=== PATIENT | female | born 1990 | race African-American/Black ===

== ENCOUNTER 2017-01-06 14:42 | Emergency (ER) | payer OTHER ==
[~2017-01-06] VITALS: Ht 162.6 cm; Wt 50.0 kg
[~2017-01-06 14:42] MED LIST: DIPHENHYDRAM25 MG PO; FERR SULFATE325 MG; MACRODANTIN100 MG PO; MEDDOSEPAK PO; NO; ONDANSETRON4 MG PO; PRE-NATAL PO; PRENATAL1 TA1; SM IRON
[2017-01-06 15:08] VITALS: BP 98/57
[2017-01-06 15:26] LABS: HEMOGLOBIN 10.3 g/dl (12.0-16.0); IMMATURE GRANULOCYTES 0.5 % (0.0-1.0); MEAN CELL VOLUME 85.9 fL CALC (80.0-100.0); MEAN CORPUSCULAR HGB 28.5 pG CALC (26.0-32.0); MEAN CORPUSCULAR HGB CONC 33.2 g/L CALC (32.0-36.0); NEUT# 2.59 thou/uL (2.00-7.15); RED BLOOD COUNT 3.61 mill/uL (4.20-5.60); RED CELL DISTRI WIDTH 12.1 % (11.5-15.5)
[2017-01-06 15:36] LABS: ALBUMIN 3.6 g/dL (3.2-5.0); ALKALINE PHOSPHATASE 39 u/l (38-126); ANION GAP 11 (6-22 (CALC)); BILIRUBIN, TOTAL 0.4 mg/dL (0.0-1.4); BUN 9 mg/dL (7-17); BUN/CREATININE RATIO 18 (12-20 (CALC)); CALCIUM 9.2 mg/dL (8.4-10.2); CARBON DIOXIDE 24 mmol/l (22-30); CHLORIDE 105 mmol/l (95-108); CREATININE 0.5 mg/dL (0.5-1.0); GFR > 60 ML/MIN (>=60 (CALC)); GFR FOR AFR.AMER. > 60 ML/MIN (>=60 (CALC)); GLUCOSE 75 mg/dL (65-105); POTASSIUM 3.5 mmol/l (3.5-5.1); SGOT/AST 16 u/l (14-36); SGPT/ALT 18 u/l (9-52); SODIUM 137 mmol/l (137-146); TOTAL PROTEIN 6.6 g/dL (6.3-8.2)
[2017-01-06 16:40] LABS: URINE BILIRUBIN - DIPSTICK NEGATIVE (NEGATIVE); URINE BLOOD DIPSTICK NEGATIVE (NEGATIVE); URINE CLARITY CLOUDY; URINE COLOR YELLOW; URINE GLUCOSE - DIPSTICK NEGATIVE (NEGATIVE); URINE KETONE TRACE mg/dL (NEGATIVE); URINE NITRITE - DIPSTICK NEGATIVE (Negative); URINE PH 6.5 (4.5-8.0); URINE PROTEIN - DIPSTICK NEGATIVE (NEG-TRACE); URINE SPECIFIC GRAVITY 1.025; URINE UROBILINOGEN - DIPSTICK 0.2 E.U./dL (0.2)
[2017-01-06 16:45] LABS: URINE LEUK ESTERASE MODERATE (NEGATIVE)
[2017-01-06 16:46] LABS: URINE BACTERIA FEW hpf; URINE MUCUS MANY hpf (NONE-FEW); URINE RBC 0-2 RBC/hpf (0-5); URINE SQUAMOUS EPITHELIAL CELL MANY EPI/hpf (0-FEW)
[2017-01-06] MEDS ORDERED: MACROBID100 MG PO ×2 (16:58→17:49)
== END 2017-01-06 17:45 | disposition home or self-care (01) | DRG 781 ==
LOC: ED 14:42
PROVIDERS: Emergency Medicine
DX: O23.92 Unspecified genitourinary tract infection in pregnancy, second trimester (principal); R10.31 Right lower quadrant pain; Z3A.16 16 weeks gestation of pregnancy; R10.32 Left lower quadrant pain

== ENCOUNTER 2017-05-18 18:00 | Observation (INO) | payer OTHER ==
[~2017-05-18] VITALS: Ht 160 cm; Wt 55.8 kg
[2017-05-18 18:00] VITALS: BP 100/62
[~2017-05-18 18:00] MED LIST changes: +MACROBID100 MG PO
[2017-05-18 18:45] VITALS: BP 117/61
[2017-05-18 19:05] LABS: URINE BILIRUBIN - DIPSTICK NEGATIVE (NEGATIVE); URINE BLOOD DIPSTICK NEGATIVE (NEGATIVE); URINE COLOR YELLOW; URINE GLUCOSE - DIPSTICK NEGATIVE (NEGATIVE); URINE KETONE TRACE mg/dL (NEGATIVE); URINE NITRITE - DIPSTICK NEGATIVE (Negative); URINE PH 6.5 (4.5-8.0); URINE PROTEIN - DIPSTICK NEGATIVE (NEG-TRACE); URINE SPECIFIC GRAVITY 1.025; URINE UROBILINOGEN - DIPSTICK 0.2 E.U./dL (0.2)
[2017-05-18 19:08] LABS: URINE CLARITY CLEAR; URINE LEUK ESTERASE SMALL (NEGATIVE)
[2017-05-18 19:09] LABS: BARBITURATES NEGATIVE (NEGATIVE); COCAINE NEGATIVE (NEGATIVE); METHADONE NEGATIVE (NEGATIVE); OXCYCODONE NEGATIVE (NEGATIVE); TETRAHYDROCANNABIONOL NEGATIVE (NEGATIVE); TRICYLIC ANTIDEPRESSANTS NEGATIVE (NEGATIVE)
[2017-05-18 19:13] LABS: HEMATOCRIT 29.4 % (37.0-47.0); HEMOGLOBIN 9.6 g/dl (12.0-16.0); IMMATURE GRANULOCYTES 3.7 % (0.0-1.0); MEAN CELL VOLUME 87.5 fL CALC (80.0-100.0); MEAN CORPUSCULAR HGB 28.6 pG CALC (26.0-32.0); MEAN CORPUSCULAR HGB CONC 32.7 g/L CALC (32.0-36.0); NEUT# 5.25 thou/uL (2.00-7.15); RED BLOOD COUNT 3.36 mill/uL (4.20-5.60); RED CELL DISTRI WIDTH 13.7 % (11.5-15.5)
[2017-05-18] MEDS ORDERED: FERR SULFATE325 MG PO (19:13)
[2017-05-18 19:15] VITALS: BP 112/63
[2017-05-18 19:20] LABS: ALBUMIN 3.3 g/dL (3.2-5.0); ALKALINE PHOSPHATASE 121 u/l (38-126); ANION GAP 13 (6-22 (CALC)); BILIRUBIN, TOTAL 0.5 mg/dL (0.0-1.4); BUN 7 mg/dL (7-17); BUN/CREATININE RATIO 13 (12-20 (CALC)); CALCIUM 9.3 mg/dL (8.4-10.2); CARBON DIOXIDE 20 mmol/l (22-30); CHLORIDE 108 mmol/l (95-108); CREATININE 0.5 mg/dL (0.5-1.0); GFR > 60 ML/MIN (>=60 (CALC)); GFR FOR AFR.AMER. > 60 ML/MIN (>=60 (CALC)); GLUCOSE 108 mg/dL (65-105); SGOT/AST 22 u/l (14-36); SGPT/ALT 23 u/l (9-52); SODIUM 137 mmol/l (137-146); TOTAL PROTEIN 6.3 g/dL (6.3-8.2)
[2017-05-18 19:42] LABS: URINE CALCIUM OXALATE CRYSTALS FEW lpf; URINE SQUAMOUS EPITHELIAL CELL FEW EPI/hpf (0-FEW)
[2017-05-18 19:45] VITALS: BP 105/59
[2017-05-18 20:15] VITALS: BP 87/48
[2017-05-18 20:45] VITALS: BP 92/48
[2017-05-19 00:27] VITALS: BP 82/47
[2017-05-19 04:15] VITALS: BP 96/48
[2017-05-19 08:45] VITALS: BP 106/58
[2017-05-19 09:25] VITALS: BP 108/59
== END 2017-05-19 10:00 | disposition home or self-care (01) | DRG 780 ==
LOC: OBOP 18:00 → OB 18:00 → OBOP 18:29 → OB 18:30
PROVIDERS: ADMIT Obstetrics & Gynecology; ATTEND Obstetrics & Gynecology
DX: O47.03 False labor before 37 completed weeks of gestation, third trimester (principal); Z3A.35 35 weeks gestation of pregnancy
CPT/HCPCS: G0378

== ENCOUNTER 2017-06-12 05:00 | Inpatient (IN) | payer OTHER ==
[2017-06-12] VITALS (12 sets, daily range): BP systolic 100–123; BP diastolic 42–78
[~2017-06-12] VITALS: Ht 162.6 cm; Wt 58.1 kg
[~2017-06-12 05:00] MED LIST changes: +FERR SULFATE325 MG PO
[2017-06-12 06:55] LABS: HEMATOCRIT 37.1 % (37.0-47.0); HEMOGLOBIN 11.8 g/dl (12.0-16.0); IMMATURE GRANULOCYTES 0.6 % (0.0-1.0); MEAN CORPUSCULAR HGB 28.3 pG CALC (26.0-32.0); MEAN CORPUSCULAR HGB CONC 31.8 g/L CALC (32.0-36.0); NEUT# 7.65 thou/uL (2.00-7.15); RED BLOOD COUNT 4.17 mill/uL (4.20-5.60); RED CELL DISTRI WIDTH 14.6 % (11.5-15.5)
[2017-06-12 07:10] LABS: ALBUMIN 3.8 g/dL (3.2-5.0); ALKALINE PHOSPHATASE 208 u/l (38-126); ANION GAP 15 (6-22 (CALC)); BILIRUBIN, TOTAL 0.3 mg/dL (0.0-1.4); BUN 10 mg/dL (7-17); BUN/CREATININE RATIO 16 (12-20 (CALC)); CALCIUM 9.7 mg/dL (8.4-10.2); CARBON DIOXIDE 23 mmol/l (22-30); CHLORIDE 106 mmol/l (95-108); CREATININE 0.6 mg/dL (0.5-1.0); GFR > 60 ML/MIN (>=60 (CALC)); GFR FOR AFR.AMER. > 60 ML/MIN (>=60 (CALC)); GLUCOSE 89 mg/dL (65-105); POTASSIUM 4.1 mmol/l (3.5-5.1); SGOT/AST 22 u/l (14-36); SGPT/ALT 15 u/l (9-52); SODIUM 140 mmol/l (137-146); TOTAL PROTEIN 7.1 g/dL (6.3-8.2)
--- NOTE | 2017-06-12 07:30 | NUR ---
PT RESTS QUIELTY IN BED, HOLDING INFANT, POSITIVE BONDING.
--- NOTE | 2017-06-12 08:06 | NUR ---
Pt arrived on unit at 0459 via EMS in severe pain with contractions starting at 0400. States she was at [facility] yesterday because she thought her membranes ruptured at 1130, but they told her her water had not broken and sent her home, but she still leaked all day. Pt moved from stretcher to birthing bed, obvious bloody show and bowel movement all over patient and she was out of control with contractions. Pt stated she had no problems with her and previous vaginal deliveries, so SVE done by MISSY Goldstein /+2 and no membranes felt. Immediate calls by Javon Luis at [address] Phillip, summoned to come to hospital for delivery and ER doctor summoned to L&D for assistance. FHR obtained by Sirisha Poe RN FHR 135 pt pushing with contractions, no doctor present. Controlled vaginal delivery at 0503 by MISSY Goldstein, nucal cord reduced prior to delivery. Viable black female mouth, nose suctioned with bulb syringe and gently dried/stimulated with warm blankets; infant active alert and crying. Cord clamped after 30 seconds and placed skin to skin on mom's chest. 0507 ER doctor arrived with nursing clinical supervisor, saw baby was delivered and informed Dr. Phillip on his way to hospital; nursing staff stated everying under control and they left the unit. 0519 Dr. Phillip in the room, delivered placenta intact at 0520 pt given IM pitocin 10 units in left thigh by MISSY Goldstein at 0521 and Methergine 0.2mg IM in right leg at 0527 by Javon Luis RN per Dr. Phillip. Dr. Phillip stated perineum intact, congratulated patient and left the unit. Pt baby without difficulty; mom and baby stable.
--- NOTE | 2017-06-12 08:40 | NUR ---
PT ATE BREAKFAST, MOVED FFORM BR 1 TO RM 207 VIA WC, TP TO SHOWER.
--- NOTE | 2017-06-12 09:00 | NUR ---
PT SITS IN BED, DENIES PAIN.
--- NOTE | 2017-06-12 10:15 | NUR ---
RESTS WITH EYES CLOSED.
--- NOTE | 2017-06-12 13:17 | NUR ---
PT MEDICATED FOR CRAMPING, STATES SHE HAS URINATED W/O PORBLEM, DID MAGED CARE.
--- NOTE | 2017-06-12 16:30 | NUR ---
REVIEWED DISCHARGE PLAN PARTIALLY. PTS FAMILY IN TO VISIT.
--- NOTE | 2017-06-12 18:30 | NUR ---
PT SITS IN BED HOLDING INFANT, POSITIVE BONDING. NO REQUESTS.
--- NOTE | 2017-06-12 19:30 | NUR ---
REPORT RECEIVED FROM NATANAEL ADRIAN RN ON PT STATUS. PT RESTING IN BED. IN CRIB.
--- NOTE | 2017-06-12 21:50 | NUR ---
SIGNIFICANT OTHER HERE. PT WATCHES TV. COMPLETES [employer] MENU. STATES HAS NO PAIN CURRENTLY. JUICE GIVEN. STATES SHE DOES NOT DRINK WATER.
--- NOTE | 2017-06-13 00:57 | NUR ---
PT SLEEPING. NO SIGNS OF DISTRESS.
--- NOTE | 2017-06-13 03:33 | NUR ---
REQUESTS PAIN MEDICATION FOR UTERINE CRAMPING. SEE E-MAR FOR DETAILS. GOOD BONDING NOTED WITH INFANT. HAS NO OTHER COMPLAINTS. CALL LIGHT WITHIN REACH. UP AD KAVYA TO USE RESTROOM.
--- NOTE | 2017-06-13 05:52 | NUR ---
CBC DRAWN FROM RT ANTICUBITAL WITHOUT DIFFICULTY AND MINIMAL BLEEDING NOTED. PT HAS NO COMPLAINTS.
[2017-06-13 06:01] LABS: HEMATOCRIT 33.9 % (37.0-47.0); HEMOGLOBIN 10.8 g/dl (12.0-16.0); IMMATURE GRANULOCYTES 1.5 % (0.0-1.0); MEAN CELL VOLUME 88.7 fL CALC (80.0-100.0); MEAN CORPUSCULAR HGB 28.3 pG CALC (26.0-32.0); MEAN CORPUSCULAR HGB CONC 31.9 g/L CALC (32.0-36.0); NEUT# 7.54 thou/uL (2.00-7.15); RED BLOOD COUNT 3.82 mill/uL (4.20-5.60); RED CELL DISTRI WIDTH 14.8 % (11.5-15.5)
--- NOTE | 2017-06-13 07:00 | NUR ---
REPORT RECIEVED FROM ALEE, PATIENT RESTING IN BED AT THIS TIME ALONE WITH IN CRIB.
--- NOTE | 2017-06-13 07:00 | NUR ---
REPORT GIVEN TO DYLAN RODRIGUEZ RN ON PT STATUS.
[2017-06-13 07:45] VITALS: BP 96/49
--- NOTE | 2017-06-13 10:02 | NUR ---
[facility] CONTACTED IN MEDICAL RECORDS PER PATIENT REQUEST REGARDING CERTIFICATE. WILL BE OVER TO DISCUSS OPTIONS WITH PATIENT SHORTLY.
[2017-06-13 16:45] VITALS: BP 111/60
--- NOTE | 2017-06-13 16:45 | NUR ---
PATIENT SEEN FOR EVENING ASSESSMENT. PREVIOUS ASSESSMENT UNCHANGED. PATIENT REPORTING CRAMPING AFTER . REQUESTING PRN MEDICATION PER PHYSICIAN ORDER FOR RELIEF. FAMILY AT BEDSIDE VISITING AND REMAINS SUPPORTIVE WITH PATIENT AND . DENIES ANY FURTHER NEEDS, CALL LIGHT WITHIN REACH.
--- NOTE | 2017-06-13 19:00 | NUR ---
report received from Mercedes Barnett RN.
[2017-06-13 19:40] VITALS: BP 108/62
--- NOTE | 2017-06-13 19:40 | NUR ---
Assessment completed as charted; voiding and performing self pericare without difficulty. Fundus is firm at U/1, lochia rubra light. Pt breastfeed infant without difficulty, demonstrated proper positioning and latch on for ; caring for infant appropriately. Pt denies any c/o discomfort at this time. Pt encouraged to view [employer] instructional videos.
--- NOTE | 2017-06-13 21:37 | NUR ---
PT VIEWING [employer] INSTRUCTIONAL VIDEOS AT THIS TIME. D/C PLANNING PAPERS FOR BOTH MOTHER AND REVIEWED AND SIGNED.
--- NOTE | 2017-06-14 00:03 | NUR ---
AT 2300, PT HAD C/O INCREASED UTERINE CRAMPING, RATING HER PAIN LEVEL AT 5:10; PT WAS MEDICATED AT THAT TIME WITH MOTRIN 600 MG PO ORDERED FOR PAIN; POT NO RESTING QUIETLY IN BED, VERBALIZED RELIEF OF PAIN.
--- NOTE | 2017-06-14 01:31 | NUR ---
PT RESTING QUIELTY IN BED WITH EYES CLOSED, RESPIRATIONS UNLABORED; IN NO APPARENT DISTRESS.
--- NOTE | 2017-06-14 01:32 | NUR ---
PT RESTING QUIETLY IN BED WITH EYES CLOSED, RESPIRATIONS UNLABORED; IN NO APPARENT DISTRESS. SLEEPING ON BACK IN OPEN CRIB AT BEDSIDE. CALLBELL WITHIN REACH.
[2017-06-14 04:10] VITALS: BP 104/60
--- NOTE | 2017-06-14 04:10 | NUR ---
VSS; PT DENIES ANY C/O DISCOMFORT AT THIS TIME. CALLBELL WITHIN REACH.
--- NOTE | 2017-06-14 04:30 | NUR ---
PT NOW SITTING UP IN BED INFANT; DEMONSTRATES PROPER POSITIONING AND LATCH ON FOR BREASTFEEDINDG. POSITIVE BONDING OBSERVED.
--- NOTE | 2017-06-14 06:30 | NUR ---
PT RESTING QUEITLY IN BED, DENIES ANY C/O DISCOMFORT AT THIS TIME. BREASTFED INFANT WITHOUT DIFFICULTY AND HAS BEEN CARING FOR APPROPRIATELY THROUGHOUT SHIFT.
--- NOTE | 2017-06-14 07:00 | NUR ---
REPORT GIVEN TO Sirisha CORTES.
--- NOTE | 2017-06-14 07:50 | NUR ---
SITTING UP IN BED EATING BREAKFAST. OFFERS NO CONCERNS. DENIES PAIN AT THIS TIME. WILL PERFORM ASSESSMENT AFTER PATIENT EATS.
[2017-06-14] MEDS ORDERED: IBUPROFEN600 MG PO (09:09)
--- NOTE | 2017-06-14 09:53 | NUR ---
GIVEN PRESCRIPTION FOR MOTRIN. INSTRUCTED TO CONTINUE TO TAKE VITAMINS AND IRON UNTIL FINISHED AND CALL FOR FOLLOW UP APPT. VERBALISE UNDERSTANDING OF SAME.
--- NOTE | 2017-06-14 11:10 | NUR ---
Discharge instructions given. Patient verbalizes understanding of same. Discharged in stable condition via Wheelchair to Home with family. All belongings sent with pt.
== END 2017-06-14 11:10 | disposition home or self-care (01) | DRG 775 ==
LOC: OBOP 05:00 → OB 05:00 → EDSTATUS 05:01 → OB 06-14 11:10
PROC: 10E0XZZ Delivery of Products of Conception, External Approach (ICD-10-PCS; principal; 2017-06-12)
DX: O62.3 Precipitate labor (principal); O99.824 Streptococcus B carrier state complicating childbirth; Z37.0 Single live birth; Z3A.39 39 weeks gestation of pregnancy